=== PATIENT | male | born 1955 | race Caucasian/White ===

== ENCOUNTER 2024-12-16 10:13 | Outpatient (CLI) | payer MEDICARE, MEDICAID ==
[~2024-12-16 10:13] MED LIST: ASPI-611 PO; BACL10TA PO; CALC650T22 PO; FAMO20TA8 PO; HYDR-3972 PO; LISI2.5T14 PO; MELO-102 PO; MIRT45TA83 PO; QUET100T34 PO; SIMV-42 PO; TRAZ-256 PO; ZIPR40CA45 PO; ZIPR80CA10 PO
--- NOTE | 2024-12-16 18:11 | RADIOLOGY REPORT ---
CT Chest without intravenous contrast INDICATION: NICOTINE DEPENDENCE TECHNIQUE: Multidetector spiral CT of the chest was performed from the lung apices to the upper abdom en. Axial, coronal and sagittal multiplanar reformats were performed. Radiation dose : Chest: CTDI volume is 3 mGy. Dose-length product is 146 mGy*cm The dose indicators for CT are the volume computed tomography (CT) dose index (CTDIvol) and the dose length product (DLP), and are measured in units of mGy and mGy-cm, respectively. These indicators are not patient dose, but values generated from the CT scanner acquisition factors. The report includes radiation exposure data for exposures received during this examination. Comparison: None Findings: Lower neck: Normal thyroid. Lungs: Emphysematous changes in both lungs. Atelectasis and scarring in the lung bases with a nodular component in the right middle lobe.. Heart/Vascular Structures: Normal heart size. No pericardial effusion. Lymph Nodes: Subcentimeter mediastinal lymph nodes. Pleura: No pleural effusion or significant pneumothorax. Musculoskeletal: No acute osseous abnormality. Soft tissues: Normal. Upper abdomen: Calcified granuloma in the spleen. Right adrenal nodule measuring up to 31 mm. IMPRESSION: 1. Smoking-related lung disease. Atelectasis and scarring in the lung bases with a nodular component in the right middle lobe. Lung rads 3-probably benign. Recommend follow-up chest CT in 6 months. Ri ght adrenal nodule. Radiation optimization: All CT scans at this facility use at least one of these dose optimization guilherme hniques: Automated exposure control mA and/or kV adjustment per patient size (includes targeted exams where dose is matched to clinical indication) or iterative reconstruction. HS:Y
== END 2024-12-16 23:59 | disposition home or self-care (01) ==
LOC: RAD 10:13
PROVIDERS: ATTEND Family Medicine
DX: Z12.2 Encounter for screening for malignant neoplasm of respiratory organs (principal); J43.9 Emphysema, unspecified; F17.210 Nicotine dependence, cigarettes, uncomplicated; E27.8 Other specified disorders of adrenal gland; J84.10 Pulmonary fibrosis, unspecified; J98.11 Atelectasis
CPT/HCPCS: 71271

== ENCOUNTER 2025-05-30 13:50 | Outpatient (CLI) | payer MEDICARE, MEDICAID ==
[~2025-05-30 13:50] MED LIST changes: +MIDAZolam 1 MG/ML 5ML VIAL ONE; +fentaNYL/PF 50MCG/1 ML 2ML syringe ONE
--- NOTE | 2025-05-30 18:24 | RADIOLOGY REPORT ---
EXAM: CT CT CHEST LOW DOSE INDICATION: HISTORY OF NICOTINE DEPENDENCE TECHNIQUE: Low-dose noncontrast CT of the lungs have been obtained. All CT scans at this facility use dose modulation, iterative reconstruction, and/or weight based dosing when appropriate to reduce radiation dose to as low as reasonably achievable. COMPARISON: CT CT CHEST LOW DOSE on DOS: 12/16/24 FINDINGS: LOWER NECK: Unremarkable LYMPH NODES/MEDIASTINUM: Multiple subcentimeter mediastinal lymph nodes. CARDIOVASCULAR: Normal cardiac size. No pericardial effusion. No aneurysmal dilatation of the great vessels. Coronary artery calcifications. UPPER ABDOMEN: Limited evaluation secondary to photon starvation. Liver and splenic visceral calcification is likely compatible with antecedent granulomatous infection. Bilateral adrenal gland nodularity which may be compatible with lipid rich adenomas with the largest in the right measuring up to 2.2 cm. Imaging finding is unchanged from 12/16/24. MUSCULOSKELETAL: Multilevel degenerative change of the visualized spine. No acute fracture or aggressive focal osseous lesion. CHEST WALL: Unremarkable. LUNG/PLEURAL SPACE: Paraseptal emphysema. Overall no suspicious pulmonary nodule. No pleural effusion or pneumothorax. IMPRESSION: 1. No suspicious pulmonary nodule. 2. Paraseptal emphysema. 3. Coronary artery calcifications. 4. Unchanged bilateral adrenal gland nodularity. LUNG-RADS: 1- Negative RECOMMENDATION: Annual low dose lung screening CT is recommended for 15 years after smoking cessation or until age 77. CITATION: Lung cancer screening categorization and recommendations per [employer] Lung-RADS Version 1.0 (http://[email or web address].org/Quality- Safety/Resources/LungRADS).
== END 2025-05-30 23:59 | disposition home or self-care (01) ==
LOC: RAD 13:50
PROVIDERS: ATTEND Family Medicine
DX: Z12.2 Encounter for screening for malignant neoplasm of respiratory organs (principal); R59.0 Localized enlarged lymph nodes; M47.814 Spondylosis without myelopathy or radiculopathy, thoracic region; J43.9 Emphysema, unspecified; Z87.891 Personal history of nicotine dependence; I25.10 Atherosclerotic heart disease of native coronary artery without angina pectoris
CPT/HCPCS: 71271; J2250; J3010